=== PATIENT | female | born 1950 | race Caucasian/White ===

== ENCOUNTER 2023-05-29 15:21 | Observation (INO) ==
[2023-05-29] MEDS ORDERED: CONSULT PHARMACY - POTASSIUM & MAGNESIUM XX SCH (17:47)
--- NOTE | 2023-05-29 18:19 | EKG ---
Test Reason : sob Blood Pressure : */* mmHG Vent. Rate : 94 BPM Atrial Rate : 94 BPM P-R Int : 144 ms QRS Dur : 60 ms QT Int : 330 ms P-R-T Axes : 2 -18 25 degrees QTc Int : 412 ms Normal sinus rhythm possible Inferior infarct , age undetermined Possible Anterior infarct , age undetermined Abnormal ECG No previous ECGs available Confirmed by Chris Camilo MD ([id number]) on 05/30/2023 7:33:15 AM Referred By: Confirmed By: Chris Camilo MD
[2023-05-29 18:27] LABS: BASOPHILS % (AUTO) 0.2 % (0.2-1.0); EOSINOPHILS # (AUTO) 0.2 x10^3/uL (0.0-0.2); EOSINOPHILS % (AUTO) 2.4 % (0.9-2.9); HEMATOCRIT 35.8 % (36.0-47.0); HEMOGLOBIN 11.9 g/dL (12.0-16.0); LYMPHOCYTES # (AUTO) 1.7 X10^3/uL (1.3-2.9); LYMPHOCYTES % (AUTO) 25.1 % (21.0-51.0); MEAN CORPUSCULAR HEMOGLOBIN 26.6 pg (27.0-34.0); MEAN CORPUSCULAR HGB CONC 33.3 g/dL (33.0-35.0); MEAN PLATELET VOLUME 7.2 fL (7.4-11.0); MONOCYTES # (AUTO) 0.4 x10^3/uL (0.3-0.8); MONOCYTES % (AUTO) 6.5 % (0.0-13.0); NEUTROPHILS # (AUTO) 4.5 x10^3/uL (2.2-4.8); NEUTROPHILS % (AUTO) 65.8 % (42.0-75.0); PLATELET COUNT 427 X10^3/uL (150.0-450.0); RED BLOOD COUNT 4.48 X10^6/uL (3.5-5.4); RED CELL DISTRIBUTION WIDTH 15.8 % (11.6-16.5); WHITE BLOOD COUNT 6.8 X10^3/uL (3.6-10.0)
[2023-05-29 18:43] LABS: ALANINE AMINOTRANSFERASE 29 Units/L (12-78); ALBUMIN 3.3 g/dL (3.4-5.0); ALKALINE PHOSPHATASE 156 Units/L (46-116); ASPARTATE AMINO TRANSFERASE 30 Units/L (15-37); BLOOD UREA NITROGEN 8 mg/dL (7-18); CALCIUM 8.7 mg/dL (8.5-10.1); CARBON DIOXIDE 24.3 mmol/L (21-32); CHLORIDE 101 mmol/L (98-107); COR CA(FOR HYPOALB) 9.3 mg/dL (8.5-10.1); COR NA(FOR HYPERGLY) 137 mmol/L (136-145); CREATININE 0.95 mg/dL (0.55-1.02); GLUCOSE 117 mg/dL (65-99); POTASSIUM 3.3 mmol/L (3.5-5.1); SODIUM 137 mmol/L (136-145); TOTAL PROTEIN 7.6 g/dL (6.4-8.2); eGFR NON BLACK RACES > 60 (>60)
[2023-05-29 19:16] LABS: BILIRUBIN,URINE NEGATIVE (NEGATIVE); BLOOD/HEMOGLOBIN,URINE 1+ (NEGATIVE); GLUCOSE, URINE NEGATIVE (NEGATIVE); KETONES,URINE NEGATIVE (NEGATIVE); LEUKOCYTE ESTERASE ,URINE 2+ (NEGATIVE); NITRITES,URINE NEGATIVE (NEGATIVE); PROTEIN,URINE 1+ (NEGATIVE); UROBILINOGEN,URINE NORMAL (NORMAL)
[2023-05-29 19:17] LABS: APPEARANCE,URINE CLEAR (CLEAR); COLOR,URINE YELLOW (YELLOW)
[2023-05-29 19:37] LABS: SQUAMOUS EPITHELIAL CELL,UR FEW /HPF (NEGATIVE)
[2023-05-29 19:38] LABS: BACTERIA,URINE TRACE /HPF (NEGATIVE)
[2023-05-29] MEDS ORDERED: K-DUR TAB 20 MEQ PO ONE (20:00)
[2023-05-29] MEDS: NS 1,000 ML IV 1,000 ML IV SCH (20:45)
[2023-05-29] MEDS ORDERED: MAG-OX TAB PO SCH (21:00)
[2023-05-29 21:30] VITALS: BMI 34.2
[2023-05-30 04:30] LABS: BASOPHILS # (AUTO) 0.1 X10^3/uL (0.0-0.1); BASOPHILS % (AUTO) 1.3 % (0.2-1.0); EOSINOPHILS # (AUTO) 0.2 x10^3/uL (0.0-0.2); EOSINOPHILS % (AUTO) 3.2 % (0.9-2.9); HEMATOCRIT 30.6 % (36.0-47.0); HEMOGLOBIN 10.2 g/dL (12.0-16.0); LYMPHOCYTES # (AUTO) 1.8 X10^3/uL (1.3-2.9); LYMPHOCYTES % (AUTO) 31.9 % (21.0-51.0); MEAN CORPUSCULAR HEMOGLOBIN 26.5 pg (27.0-34.0); MEAN CORPUSCULAR HGB CONC 33.3 g/dL (33.0-35.0); MEAN CORPUSCULAR VOLUME 79.7 fL (80.0-100.0); MEAN PLATELET VOLUME 6.9 fL (7.4-11.0); MONOCYTES # (AUTO) 0.6 x10^3/uL (0.3-0.8); MONOCYTES % (AUTO) 10.3 % (0.0-13.0); NEUTROPHILS % (AUTO) 53.3 % (42.0-75.0); PLATELET COUNT 340 X10^3/uL (150.0-450.0); RED BLOOD COUNT 3.84 X10^6/uL (3.5-5.4); RED CELL DISTRIBUTION WIDTH 15.7 % (11.6-16.5); WHITE BLOOD COUNT 5.6 X10^3/uL (3.6-10.0)
[2023-05-30] MEDS: NS 1,000 ML IV 1,000 ML IV SCH ×4 (04:40→20:23)
[2023-05-30 04:43] LABS: ALANINE AMINOTRANSFERASE 22 Units/L (12-78); ALBUMIN 2.7 g/dL (3.4-5.0); ALKALINE PHOSPHATASE 123 Units/L (46-116); ASPARTATE AMINO TRANSFERASE 25 Units/L (15-37); BLOOD UREA NITROGEN 7 mg/dL (7-18); CALCIUM 8.4 mg/dL (8.5-10.1); CARBON DIOXIDE 28.3 mmol/L (21-32); CHLORIDE 104 mmol/L (98-107); COR CA(FOR HYPOALB) 9.4 mg/dL (8.5-10.1); CREATININE 0.74 mg/dL (0.55-1.02); GLUCOSE 82 mg/dL (65-99); MAGNESIUM 1.7 mg/dL (2.0-2.9); POTASSIUM 3.5 mmol/L (3.5-5.1); SODIUM 140 mmol/L (136-145); TOTAL PROTEIN 6.2 g/dL (6.4-8.2); eGFR NON BLACK RACES > 60 (>60)
[2023-05-30] MEDS ORDERED: CONSULT PHARMACY - POTASSIUM & MAGNESIUM XX SCH (06:00)
--- NOTE | 2023-05-30 06:00 | RAD ---
HISTORYSOB Relevant Clinical InformationSTUDYCHEST, 1 VIEWCOMPARISONNoneFINDINGSThe trachea is midline. The cardiac silhouette is unremarkable. The right hemidiaphragm is elevated. The lungs are clear without focal infiltrate or effusion. The bony thorax is unremarkable.IMPRESSIONNo acute cardiopulmonary findings .Electronically signed by: Guero Chisholm (May 30, 2023 05:48:25)
[2023-05-30] MEDS: MAG-OX TAB PO SCH ×2 (08:23→09:18)
[2023-05-30] MEDS: LOVENOX INJ 40 MG SYR SC SCH (08:23)
[2023-05-30] MEDS ORDERED: K-DUR TAB 20 MEQ PO SCH (09:00)
[2023-05-30] MEDS: ROCEPHIN VIAL 1 GRAM 1 G in NS 100 ML IV 100 ML IV SCH ×2 (09:18)
[2023-05-30] MEDS: VITAMIN C PO SCH (12:00)
[2023-05-30] MEDS: HYZAAR 50/12.5 MG PO SCH (12:00)
[2023-05-30] MEDS: CELEXA PO SCH (12:00)
[2023-05-30] MEDS: VITAMIN D3 25 mcg (1,000 UNITS) PO SCH (12:00)
[2023-05-30] MEDS: PriLOSEC PO SCH (12:00)
--- NOTE | 2023-05-30 12:00 | DR.UPDATE ---
H&P UPDATE Review Yes Any changes to H&P?: Yes Changes noted:: MISS HACKETT WAS A DIRECT ADMISSION TO THE HOSPITAL OBSERVATION STATUS FOR FURTHER EVALUATION OF INCREASED WEAKNESS, FATIGUE, AND SHORTNESS OF BREATH. HER PMH INCLUDES: TIA, HYPERLIPIDEMIA, HTN, HEART MURMUR, SLEEP APNEA, ARTHRITIS, OSTEOARTHRITIS, APPENDECTOMY, HYSTERECTOMY, JOINT REPLACEMENT, TONSILLECTOMY, BILATERAL KNEE REPLACEMENT. SHE REPORTS THAT SHE WAS HOSPITALIZED ABOUT A MONTH AGO FOR TREATMENT OF UROSEPSIS. SHE WAS DISCHARGED HOME ON IV ANTIBIOTICS. SHE COMPLETED THE TWO WEEK COURSE OF IV ANTIBIOTICS ABOUT TWO WEEKS AGO. SHE DOES NOT REMEMBER THE NAME OF THE ANTIBIOTICS. WE WILL ATTEMPT TO COLLECT HER RECORDS FROM [facility] IN [place], [place]. SHE REPORTS AN INCREASED IN WEAKNESS SINCE FINISHING THE ANTIBIOTICS. ON ARRIVAL TO THE HOSPITAL, HIS VITALS WERE: 98.5-96-20-95% ROOM AIR-128/73. LABS WERE OBTAINED. WBC 6.8, RBC 4.48, HGB 11.9, HCT 35.8, PLT COUNT 427, SODIUM 137, POTASSIUM 3.3, CHLORIDE 101, BUN 8, CREATININE 0.95, GLUCOSE 117, CALCIUM 8.7, MAGNESIUM 1.7, TOTAL BILI 0.40, AST 30, ALT 29, ALK PHOS 156, CREATINE KINASE 35, TROPONIN 6.5, TOTAL PROTEIN 7.6, ALBUMIN 3.3. A URINALYSIS WAS OBTAINED AND REVEALED: WBC 5- 10, RBC 3-5, LEUKOCYTES 2+, BACTERIA TRACE. A URINE CULTURE AND BLOOD CULTURES WERE SET UP. A CHEST XRAY WAS OBTAINED AND REVEALED: No acute cardiopulmonary findings. EKG REVEALED: NORMAL SINUS RHYTHM WITH HR 94 BPM. ON ADMISSION, SHE WAS STARTED ON NORMAL SALINE AT 125 ML/HR, ROCEPHIN 1G IV DAILY, LOVENOX 40MG SC DAILY. WE WILL RESUME HER HOME MEDICATIONS OF ASCORBIC ACID, ATORVASTATIN, VITAMIN D3, CELEXA, LOSARTAN-HCTZ, AND OMEPRAZOLE. WE WILL REPEAT A TROPONIN LEVEL AND EKG. OTHERWISE, WE PLAN TO FOLLOW UP WITH AM LABS AND CONTINUE TO MONITOR. TIME SPENT ON CLINICAL ASSESSMENT, REVIEWING LABS AND IMAGING, DECISION MAKING, AND DOCUMENTATION GREATER THAN 75 MINUTES.
--- NOTE | 2023-05-30 12:13 | EKG ---
Test Reason : SOB Blood Pressure : */* mmHG Vent. Rate : 68 BPM Atrial Rate : 68 BPM P-R Int : 126 ms QRS Dur : 70 ms QT Int : 390 ms P-R-T Axes : 22 -4 66 degrees QTc Int : 414 ms Normal sinus rhythm Normal ECG When compared with ECG of 29-MAY-2023 17:39, Borderline criteria for Anterior infarct are no longer present No significant change was found Confirmed by Fred Kolb ([id number]) on 06/01/2023 10:19:49 AM Referred By: Confirmed By: Fred Kolb
[2023-05-30] MEDS: LIPITOR TAB 80 MG PO SCH (20:23)
[2023-05-31] MEDS: NS 1,000 ML IV 1,000 ML IV SCH ×3 (03:58→18:47)
[2023-05-31 05:33] LABS: BASOPHILS # (AUTO) 0.1 X10^3/uL (0.0-0.1); BASOPHILS % (AUTO) 1.2 % (0.2-1.0); EOSINOPHILS # (AUTO) 0.2 x10^3/uL (0.0-0.2); EOSINOPHILS % (AUTO) 3.4 % (0.9-2.9); HEMATOCRIT 30.7 % (36.0-47.0); HEMOGLOBIN 10.4 g/dL (12.0-16.0); LYMPHOCYTES # (AUTO) 1.8 X10^3/uL (1.3-2.9); LYMPHOCYTES % (AUTO) 33.3 % (21.0-51.0); MEAN CORPUSCULAR HEMOGLOBIN 26.9 pg (27.0-34.0); MEAN CORPUSCULAR HGB CONC 33.8 g/dL (33.0-35.0); MEAN CORPUSCULAR VOLUME 79.8 fL (80.0-100.0); MEAN PLATELET VOLUME 7.3 fL (7.4-11.0); MONOCYTES # (AUTO) 0.5 x10^3/uL (0.3-0.8); MONOCYTES % (AUTO) 9.5 % (0.0-13.0); NEUTROPHILS # (AUTO) 2.9 x10^3/uL (2.2-4.8); NEUTROPHILS % (AUTO) 52.6 % (42.0-75.0); PLATELET COUNT 364 X10^3/uL (150.0-450.0); RED BLOOD COUNT 3.85 X10^6/uL (3.5-5.4); WHITE BLOOD COUNT 5.5 X10^3/uL (3.6-10.0)
[2023-05-31 05:56] LABS: ALANINE AMINOTRANSFERASE 21 Units/L (12-78); ALBUMIN 2.7 g/dL (3.4-5.0); ALKALINE PHOSPHATASE 121 Units/L (46-116); ASPARTATE AMINO TRANSFERASE 22 Units/L (15-37); BLOOD UREA NITROGEN 6 mg/dL (7-18); CALCIUM 8.4 mg/dL (8.5-10.1); CARBON DIOXIDE 27.6 mmol/L (21-32); CHLORIDE 106 mmol/L (98-107); COR CA(FOR HYPOALB) 9.4 mg/dL (8.5-10.1); GLUCOSE 75 mg/dL (65-99); MAGNESIUM 1.8 mg/dL (2.0-2.9); POTASSIUM 3.4 mmol/L (3.5-5.1); SODIUM 140 mmol/L (136-145); TOTAL PROTEIN 6.2 g/dL (6.4-8.2); eGFR NON BLACK RACES > 60 (>60)
[2023-05-31] MEDS ORDERED: CONSULT PHARMACY - POTASSIUM & MAGNESIUM XX SCH (07:00)
[2023-05-31] MEDS ORDERED: K-DUR TAB 20 MEQ PO SCH (09:00)
[2023-05-31] MEDS: HYZAAR 50/12.5 MG PO SCH (09:30)
[2023-05-31] MEDS: VITAMIN D3 25 mcg (1,000 UNITS) PO SCH (09:30)
[2023-05-31] MEDS: VITAMIN C PO SCH (09:30)
[2023-05-31] MEDS: ROCEPHIN VIAL 1 GRAM 1 G in NS 100 ML IV 100 ML IV SCH (09:30)
[2023-05-31] MEDS: MAG-OX TAB PO SCH ×2 (09:30→11:25)
[2023-05-31] MEDS: PriLOSEC PO SCH (09:30)
[2023-05-31] MEDS: LOVENOX INJ 40 MG SYR SC SCH (09:30)
[2023-05-31] MEDS: CELEXA PO SCH (09:30)
[2023-05-31] MEDS: HEMOCYTE-PLUS PO SCH (11:26)
[2023-05-31] MEDS: LIPITOR TAB 80 MG PO SCH (21:16)
[2023-05-31] MEDS ORDERED: TYLENOL 325 MG TAB PO PRN (23:14)
[2023-06-01 00:04] VITALS: TEMP 98.5
[2023-06-01] MEDS: NS 1,000 ML IV 1,000 ML IV SCH (02:08)
[2023-06-01 04:53] LABS: BASOPHILS # (AUTO) 0.1 X10^3/uL (0.0-0.1); BASOPHILS % (AUTO) 1.2 % (0.2-1.0); EOSINOPHILS # (AUTO) 0.2 x10^3/uL (0.0-0.2); EOSINOPHILS % (AUTO) 2.9 % (0.9-2.9); HEMATOCRIT 27.6 % (36.0-47.0); HEMOGLOBIN 9.4 g/dL (12.0-16.0); LYMPHOCYTES # (AUTO) 1.9 X10^3/uL (1.3-2.9); LYMPHOCYTES % (AUTO) 33.3 % (21.0-51.0); MEAN CORPUSCULAR HEMOGLOBIN 26.8 pg (27.0-34.0); MEAN CORPUSCULAR VOLUME 78.7 fL (80.0-100.0); MONOCYTES # (AUTO) 0.6 x10^3/uL (0.3-0.8); MONOCYTES % (AUTO) 10.6 % (0.0-13.0); PLATELET COUNT 304 X10^3/uL (150.0-450.0); RED BLOOD COUNT 3.51 X10^6/uL (3.5-5.4); RED CELL DISTRIBUTION WIDTH 15.5 % (11.6-16.5); WHITE BLOOD COUNT 5.8 X10^3/uL (3.6-10.0)
[2023-06-01 05:14] LABS: ALANINE AMINOTRANSFERASE 18 Units/L (12-78); ALBUMIN 2.4 g/dL (3.4-5.0); ALKALINE PHOSPHATASE 107 Units/L (46-116); ASPARTATE AMINO TRANSFERASE 20 Units/L (15-37); BLOOD UREA NITROGEN 3 mg/dL (7-18); CALCIUM 7.8 mg/dL (8.5-10.1); CARBON DIOXIDE 26.8 mmol/L (21-32); CHLORIDE 106 mmol/L (98-107); COR CA(FOR HYPOALB) 9.1 mg/dL (8.5-10.1); CREATININE 0.68 mg/dL (0.55-1.02); GLUCOSE 83 mg/dL (65-99); MAGNESIUM 1.7 mg/dL (2.0-2.9); POTASSIUM 3.3 mmol/L (3.5-5.1); SODIUM 139 mmol/L (136-145); TOTAL PROTEIN 5.6 g/dL (6.4-8.2); eGFR NON BLACK RACES > 60 (>60)
[2023-06-01] MEDS ORDERED: CONSULT PHARMACY - POTASSIUM & MAGNESIUM XX SCH (06:00)
[2023-06-01] MEDS: HEMOCYTE-PLUS PO SCH (08:55)
[2023-06-01] MEDS: VITAMIN D3 25 mcg (1,000 UNITS) PO SCH (08:56)
[2023-06-01] MEDS: VITAMIN C PO SCH (08:56)
[2023-06-01] MEDS: PriLOSEC PO SCH (08:56)
[2023-06-01] MEDS: CELEXA PO SCH (08:57)
[2023-06-01] MEDS: LOVENOX INJ 40 MG SYR SC SCH (08:57)
[2023-06-01] MEDS: ROCEPHIN VIAL 1 GRAM 1 G in NS 100 ML IV 100 ML IV SCH (08:57)
[2023-06-01] MEDS ORDERED: K-DUR TAB 20 MEQ PO SCH (09:00)
[2023-06-01] MEDS ORDERED: MAG-OX TAB PO SCH (09:00)
[2023-06-01 09:34] VITALS: RESP 20; O2SAT 98
--- NOTE | 2023-06-01 11:31 | W.DIS.FURT ---
Summary of Discharge Discharge Summary of Date Date of Exam: 06/01/23 Admission Date Date of Admission: 05/30/23 Admission Diagnosis Hospital Course: Patient is a 73-year-old female past medical history hyperlipidemia, hypertension, heart murmur, sleep apnea, arthritis, that was admitted for generalized weakness and fatigue. She also reported some shortness of breath. Her hospital/treatment course included IV fluids and Rocephin. Urine and blood cultures returned negative. She did have some electrolyte abnormalities that were corrected with supplementation. Patient responded well to treatment and symptoms significantly improved. Patient desires to go home. She is otherwise medically stable. Patient discharged in stable condition, instructed to follow- up with PCP in 1 week. Vital Signs: Vital Signs (72 hours) 05/29/23 17:59 05/29/23 18:00 05/29/23 18:00 Temperature Pulse Rate 97 H 98 H Pulse Rate [Apical] Respiratory Rate Blood Pressure 128/73 Blood Pressure [Left Arm] O2 Sat by Pulse Oximetry 98 97 Oxygen Delivery Method 05/29/23 18:15 05/29/23 19:00 05/29/23 19:00 Temperature 98.5 F Pulse Rate 96 H 89 Pulse Rate [Apical] Respiratory Rate 20 Blood Pressure Blood Pressure [Left Arm] O2 Sat by Pulse Oximetry 95 96 Oxygen Delivery Method Room Air Room Air 05/29/23 20:00 05/29/23 20:00 05/29/23 21:00 Temperature 98.8 F 98.6 F Pulse Rate 91 H 92 H Pulse Rate [Apical] 89 Respiratory Rate 18 20 18 Blood Pressure 128/79 Blood Pressure [Left Arm] 128/79 O2 Sat by Pulse Oximetry 95 96 97 Oxygen Delivery Method Room Air Nasal Cannula Room Air 05/30/23 00:00 05/30/23 04:00 05/30/23 08:00 Temperature 98.4 F 98.7 F 98.3 F Pulse Rate Pulse Rate [Apical] 82 68 70 Respiratory Rate 18 20 18 Blood Pressure Blood Pressure [Left Arm] 117/61 133/67 139/67 O2 Sat by Pulse Oximetry 95 95 96 Oxygen Delivery Method Room Air 05/30/23 07:00 05/30/23 12:00 05/30/23 16:00 Temperature 97.8 F 98.7 F Pulse Rate Pulse Rate [Apical] 64 82 Respiratory Rate 16 22 Blood Pressure Blood Pressure [Left Arm] 134/60 140/68 O2 Sat by Pulse Oximetry 95 96 Oxygen Delivery Method Room Air Room Air Room Air 05/30/23 19:00 05/30/23 20:00 05/31/23 00:00 Temperature 98.4 F 98.7 F Pulse Rate Pulse Rate [Apical] 74 88 Respiratory Rate 20 26 H Blood Pressure Blood Pressure [Left Arm] 157/72 132/61 O2 Sat by Pulse Oximetry 99 Oxygen Delivery Method Room Air Room Air Room Air 05/31/23 04:00 05/31/23 08:00 05/31/23 07:00 Temperature 98.4 F 97.9 F Pulse Rate Pulse Rate [Apical] 67 70 Respiratory Rate 20 16 Blood Pressure Blood Pressure [Left Arm] 138/64 154/77 O2 Sat by Pulse Oximetry 98 97 Oxygen Delivery Method Room Air Room Air Room Air 05/31/23 12:00 05/31/23 16:00 05/31/23 19:00 Temperature 97.8 F 97.6 F Pulse Rate Pulse Rate [Apical] 63 66 Respiratory Rate 18 17 Blood Pressure Blood Pressure [Left Arm] 161/77 160/71 O2 Sat by Pulse Oximetry 97 95 Oxygen Delivery Method Room Air Room Air Room Air 05/31/23 20:00 05/31/23 23:40 06/01/23 00:00 Temperature 98.6 F 98.5 F Pulse Rate Pulse Rate [Apical] 68 74 Respiratory Rate 20 18 20 Blood Pressure Blood Pressure [Left Arm] 134/64 162/66 O2 Sat by Pulse Oximetry 95 97 Oxygen Delivery Method Room Air Room Air 06/01/23 00:40 06/01/23 04:00 06/01/23 07:00 Temperature 98.5 F Pulse Rate Pulse Rate [Apical] 60 Respiratory Rate 20 18 Blood Pressure Blood Pressure [Left Arm] 148/67 O2 Sat by Pulse Oximetry 96 Oxygen Delivery Method Room Air Room Air 06/01/23 08:00 Temperature Pulse Rate Pulse Rate [Apical] 68 Respiratory Rate 20 Blood Pressure Blood Pressure [Left Arm] 177/82 O2 Sat by Pulse Oximetry 98 Oxygen Delivery Method Room Air Labs: Laboratory Last Values WBC 5.8 X10^3/uL (3.6-10.0) 06/01/23 04:05 RBC 3.51 X10^6/uL (3.5-5.4) 06/01/23 04:05 Hgb 9.4 g/dL (12.0-16.0) L 06/01/23 04:05 Hct 27.6 % (36.0-47.0) L 06/01/23 04:05 MCV 78.7 fL (80.0-100.0) L 06/01/23 04:05 MCH 26.8 pg (27.0-34.0) L 06/01/23 04:05 MCHC 34.0 g/dL (33.0-35.0) 06/01/23 04:05 RDW 15.5 % (11.6-16.5) 06/01/23 04:05 Plt Count 304 X10^3/uL (150.0-450.0) 06/01/23 04:05 MPV 7.0 fL (7.4-11.0) L 06/01/23 04:05 Neut % (Auto) 52.0 % (42.0-75.0) 06/01/23 04:05 Lymph % (Auto) 33.3 % (21.0-51.0) 06/01/23 04:05 Ware % (Auto) 10.6 % (0.0-13.0) 06/01/23 04:05 Eos % (Auto) 2.9 % (0.9-2.9) 06/01/23 04:05 Baso % (Auto) 1.2 % (0.2-1.0) H 06/01/23 04:05 Neut # (Auto) 3.0 x10^3/uL (2.2-4.8) 06/01/23 04:05 Lymph # (Auto) 1.9 X10^3/uL (1.3-2.9) 06/01/23 04:05 Ware # (Auto) 0.6 x10^3/uL (0.3-0.8) 06/01/23 04:05 Eos # (Auto) 0.2 x10^3/uL (0.0-0.2) 06/01/23 04:05 Baso # (Auto) 0.1 X10^3/uL (0.0-0.1) 06/01/23 04:05 Absolute Nucleated RBC 0.0 /100WBC 06/01/23 04:05 Sodium 139 mmol/L (136-145) 06/01/23 04:05 Corrected Sodium TNP 06/01/23 04:05 Potassium 3.3 mmol/L (3.5-5.1) L 06/01/23 04:05 Chloride 106 mmol/L (98-107) 06/01/23 04:05 Carbon Dioxide 26.8 mmol/L (21-32) 06/01/23 04:05 BUN 3 mg/dL (7-18) L 06/01/23 04:05 Creatinine 0.68 mg/dL (0.55-1.02) 06/01/23 04:05 Est GFR (MDRD) Af Amer > 60 (>60) 06/01/23 04:05 Est GFR (MDRD) Non-Af > 60 (>60) 06/01/23 04:05 Glucose 83 mg/dL (65-99) 06/01/23 04:05 Calcium 7.8 mg/dL (8.5-10.1) L 06/01/23 04:05 Corrected Calcium 9.1 mg/dL (8.5-10.1) 06/01/23 04:05 Magnesium 1.7 mg/dL (2.0-2.9) L 06/01/23 04:05 Iron 49 ug/dL (50-175) L 05/31/23 04:15 TIBC 261 ug/dL (250-450) 05/31/23 04:15 % Saturation 18.8 % (11.0-46.0) 05/31/23 04:15 Total Bilirubin 0.30 mg/dL (0.2-1.0) 06/01/23 04:05 AST 20 Units/L (15-37) 06/01/23 04:05 ALT 18 Units/L (12-78) 06/01/23 04:05 Alkaline Phosphatase 107 Units/L (46-116) 06/01/23 04:05 Creatine Kinase 35 Units/L (26-192) 05/29/23 17:45 Troponin I High Sens 5.3 ng/L (4.0-60.0) 05/30/23 12:08 Total Protein 5.6 g/dL (6.4-8.2) L 06/01/23 04:05 Albumin 2.4 g/dL (3.4-5.0) L 06/01/23 04:05 Globulin 3.2 g/dL (2.5-4.5) 06/01/23 04:05 Albumin/Globulin Ratio 0.8 Ratio (1.1-2.1) L 06/01/23 04:05 Vitamin B12 494 pg/mL (193-986) 05/31/23 04:15 Folate 8.7 ng/mL (>8.6) 05/31/23 04:15 Specimen Type Clean catch urine 05/29/23 19:01 Urine Color Yellow (YELLOW) 05/29/23 19:01 Urine Appearance Clear (CLEAR) 05/29/23 19: Urine pH 7.0 (5.0 - 8.0) 05/29/23 19: Ur Specific [place] 1.015 (1.000-1.030) 05/29/23 19:01 Urine Protein 1+ (NEGATIVE) 05/29/23 19:01 Urine Glucose (UA) Negative (NEGATIVE) 05/29/23 19: Urine Ketones Negative (NEGATIVE) 05/29/23 19: Urine Blood 1+ (NEGATIVE) 05/29/23 19: Urine Nitrite Negative (NEGATIVE) 05/29/23 19: Urine Bilirubin Negative (NEGATIVE) 05/29/23 19: Urine Urobilinogen Normal (NORMAL) 05/29/23 19:01 Ur Leukocyte Esterase 2+ (NEGATIVE) 05/29/23 19:01 Urine RBC 3-5 /HPF (0-3) A 05/29/23 19:01 Urine WBC 5-10 /HPF (0-5) A 05/29/23 19:01 Ur Squamous Epith Cells Few /HPF (NEGATIVE) 05/29/23 19:01 Urine Bacteria Trace /HPF (NEGATIVE) 05/29/23 19:01 Ur Culture Indicated? No/not indicated 05/29/23 19: Stl Occult Blood (IFOB) Negative (NEGATIVE) 05/31/23 14:50 Reason For Visit: SOB, FATIGUE, WEAKNESS Discharge Date Discharge Date: 06/01/23 Discharge Diagnosis All Active Problems (Updated 10/06/18 @ 16:02 by ANAIS TITUS) DJD of AC (acromioclavicular) joint (Acute) Plan of Treatment: Continue with present treatment and follow up plan. Pt is to keep follow up appointment as instructed and take medications as ordered. Discharge Medications Discharge Medications: STERI STRIPS Allergy (Uncoded 10/06/18 15:03) CONTINUE taking the following medications ascorbic acid (vitamin C) 1,000 mg tablet (Vitamin C) 1,000 mg PO DAILY 05/29/23 [History] atorvastatin 80 mg tablet 80 mg PO QHS 05/29/23 [History] cholecalciferol (vitamin D3) 25 mcg (1,000 unit) capsule (Vitamin D3) 25 mcg PO QDAY 05/29/23 [History] citalopram 20 mg tablet (Celexa) 20 mg PO QDAY 05/29/23 [History] losartan 50 mg-hydrochlorothiazide 12.5 mg tablet 1 tab PO QDAY 05/29/23 [History] omeprazole 40 mg capsule,delayed release 40 mg PO DAILY 05/29/23 [History] metoprolol succinate 25 mg tablet,extended release 24 hr 25 mg PO HS 05/30/23 [History] Discharge Plan Discharge Plan Hospital Course: Patient is a 73-year-old female past medical history hyperlipidemia, hypertension, heart murmur, sleep apnea, arthritis, that was admitted for generalized weakness and fatigue. She also reported some shortness of breath. Her hospital/treatment course included IV fluids and Rocephin. Urine and blood cultures returned negative. She did have some electrolyte abnormalities that were corrected with supplementation. Patient responded well to treatment and symptoms significantly improved. Patient desires to go home. She is otherwise medically stable. Patient discharged in stable condition, instructed to follow- up with PCP in 1 week. Patient Disposition: 01 HOME, SELF-CARE Condition: Stable Health Concerns: Post Hospitalization: new medications and changes needed to prevent readmission or further decline. Pt educated and given instructions on all concerns. Plan of Treatment: Continue with present treatment and follow up plan. Pt is to keep follow up appointment as instructed and take medications as ordered. Prescriptions: Continued losartan-hydrochlorothiazide 50-12.5 mg Tablet 1 tab PO QDAY atorvastatin 80 mg Tablet 80 mg PO QHS omeprazole 40 mg Capsule,Delayed Release(Dr/Ec) 40 mg PO DAILY citalopram [Celexa] 20 mg Tablet 20 mg PO QDAY ascorbic acid (vitamin C) [Vitamin C] 1,000 mg Tablet 1,000 mg PO DAILY cholecalciferol (vitamin D3) [Vitamin D3] 25 mcg (1,000 unit) Capsule 25 mcg PO QDAY metoprolol succinate 25 mg Tablet Extended Release 24 Hr 25 mg PO HS Orders to Discharge Patient Discharge Orders: Discharge (Routine); Ordered 06/01/23 Ordered By: Vladislav Ernst Follow ups/Referrals Follow ups/Referrals: JOSEPH KIRKPATRICK [Primary Care Provider] - 1 WEEK Instructions Stand Alone Forms: Excuse From Work or School, Post Hospital Follow Up Care
[2023-06-01 12:29] VITALS: BP 147/72; PULSE 77
== END 2023-06-01 13:00 | disposition home or self-care (01) ==
LOC: ICU
PROVIDERS: ADMIT Internal Medicine; ATTEND Internal Medicine
DX: Z86.73 Personal history of transient ischemic attack (TIA), and cerebral infarction without residual deficits; R53.83 Other fatigue; R53.1 Weakness; D50.8 Other iron deficiency anemias; E83.42 Hypomagnesemia; R06.02 Shortness of breath